=== PATIENT | female | born 2005 | race Caucasian/White ===

== ENCOUNTER 2025-05-25 13:26 | Emergency (ER) | payer OTHER, SELFPAY ==
--- OUTSIDE RECORDS SUMMARY | 2012-11-29 03:53 | XMS_ITS | Continuity of Care Document ---
Author Organization [facility] Address [address] [place] [address] Phone Care Team Providers Care Director Employee Communications Name Role Phone Trent De Guzman MD Unavailable Unavailable Medications Medication Instructions Dosage Effective Dates (start - stop) Status Comments Nasonex 50 mcg/Actuation Ferriday spray 1-2 spray by intranasal route every day in each nostril - Active PROAIR HFA 90 MCG INHALER inhale 2 puff by inhalation route 4 - 6 hours as needed - Active FLOVENT HFA 110 MCG INHALER inhale 2 puff (220MCG) by inhalation route 2 times every day - Active ALBUTEROL 0.083% INHAL SOLN 3 Q 4HR - Active Advance Directives Directive Yes / No Effective Date File Name No Information Encounters Encounter Description Practice Location Reason(s) For Visit Diagnoses Date Provider Providers Copied on Encounter [email or web address], [address], [place], [place], [id number] , tel: [phone] [facility] No Information 3 Gab Newman. [address], [id number], [place]. tel:[phone] [email or web address], [address], [place], [place], [id number] , tel: [phone] [email or web address] INTRINSIC ASTHMA, UNSPECIFIEDAllerg ic rhinitis due to pollen 1 Gab Newman. [address], [id number], . tel:[phone] Referring Provider: Donaldo Hughes, [address], [place], [address]. tel:[phone] [facility], [address], [place], [place], [id number] , tel: [phone] Conversion Department No Information 1 Conversion Doctor. [address], [facility], . [facility], [address], [place], [place], [id number] , tel: [phone] [facility] INT ASTHMA W (AC) EXACRHINITIS DUE TO POLLEN 0 Gab Newman. [address] [place] [address], [id number], . tel:[phone] [facility], [address], [place], [place], [id number] , tel: [phone] [facility] INTRINSIC ASTHMA NOS 0 4200 8 Gab Newman. [address], [id number], . tel:[phone] [facility], [address], [place], [place], [id number] , tel: [phone] [facility] ALLERGIC RHINITIS NECARTERIAL DISEASE NEC 8200 8 Gab Newman. [address] [place] [address], [id number], . tel:[phone] Family History Family Member Type Diagnosis Age At Onset No Information Payers Payer name Insurance type Covered constitution party ID Authoriza tion(s) [employer] BL [id number] Social History Type Description Quantity Date Captured Comments Sex Female Smoking Status No Information Chief Complaint And Reason For Visit No Information Reason For Referral Reason For Referral No Information History Of Present Illness Encounter Date Complaint History Of Prese nt Illness No Information Functional Status Date Functional Assessmen t No Information Instructions Date Instruction Additional Infor mation No Information Assessments Type Assessment Date No Information Patient Care Teams Name Effective Dates (start - stop) Status Members No Information
--- OUTSIDE RECORDS SUMMARY | 2022-03-31 10:29 | XMS_ITS | Continuity of Care Document ---
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 Name Role Phone Caleb Bob DO Unavailable Unavailable Allergies, Adverse Reactions, Alerts Substance Reaction Status Criticality DIPHENHYDRAMINE HCL Active No Infor mation Medications Medication Instructions Dosage Effective Dates (start - stop) Status Comments albuterol sulfate HFA 90 mcg/actuation aerosol inhaler inhale 2 puff by inhalation route every 4 - 6 hours as needed 180 MCG - Active Problems Condition Type Effective Dates (start - stop) Clini marixa Status Comments No Known Problems Procedures Procedure Date OFFICE/OUTPATIENT VISIT, EST URINALYSIS NONAUTO W/O SCOPE OFFICE/OUTPATIENT VISIT, [facility] Advance Directives Directive Yes / No Effective Date File Name No Information Encounters Encounter Description Practice Location Reason(s) For Visit Diagnoses Date Provider Providers Copied on Encounter [facility], [address] [place] [address], [address], tel:[phone] *[facility] No Information 2 Lisbeth Ellis. [address] [place], [address], [place]. tel:[phone] OFFICE/OUTPAT IENT VISIT, EST [facility], [address] [place], [address], tel:[phone] *[facility] Ur[facility] Care covid symptoms (chief complaint) Body mass index [BMI] pediatric, 5th percentile to less than 85th percentile for ageFlu-like symptoms 1 Lisbeth Van [address] [facility] [place], [address], [place]. tel:[phone] OFFICE/OUTPAT IENT VISIT, [facility], [address], [place], [address], [place] tel:[phone] *[facility] Care abdominal pain (chief complaint) Body mass index [BMI] 23.0-23.9, adultNoninfective gastroenteritis and colitis, unspecifiedAcute cystitis without hematuriaVaginal yeast infection 1 Nila Paul. [address] [place], [address], [place]. tel:[phone] Family History Family Member Type Diagnosis Age At Onset No Information Payers Payer name Insurance type Covered democrat ID Authoriza tion(s) No Information Social History Type Description Quantity Date Captured Comments Alcohol Use Details Unknown Caffeine Use Details Unknown Tobacco Use Status No Information Smoking Status No Information Sex Female Chief Complaint And Reason For Visit No Information Reason For Referral Reason For Referral No Information Plan Of Treatment Date Type Action Status Goal Dietary manageme nt education, guidance, and counseling completed Goal Dietary manageme nt education, guidance, and counseling completed Future Order: Lab Order SARS-2 ( COVID-19)RNA,[id number] ([id number]), Sent on: Sent History Of Present Illness Encounter Date Complaint History Of Prese nt Illness covid symptoms The symptoms beg an 2 days ago. The symptoms are reported as being moderate. The symptoms occur . She states the symptoms are acute. no exposure - symptoms - cough, congestion, headache, body aches, drainage. patient states that she use to have asthma. abdominal pain Onset: 2 Days ag o. Pain scale: 6/10. The reports no vomiting. The reports no diarrhea. Associated symptoms include abdominal pain, nausea and yeast infection. Pertinent negatives include cough, fever, lethargy or rash. Additional information: no sexual activity for 2 months, has menses since. Functional Status Date Functional Assessmen t No Information Instructions Date Instruction Additional Infor gianna quarantine, covid sw ab. Patient educated to rest, if fever presents to follow OTC medication regiment for fever, avoid contact with others as much as possible for 48 hours, wash hands frequently, drink plenty of fluids and report any changes in condition. Take medications a prescribed and report any changes. Related to Flu-like symptoms Giving encouragement to exercise Related to Body mass index [BMI] pediatric, 5th percentile to less than 85th percentile for age Dietary management e ducation, guidance, and counseling Related to Body mass index [BMI] pediatric, 5th percentile to less than 85th percentile for age Your condition can c hange/deteriorate quickly. I strongly encourage you to return to the office for follow up visit if your condition changes or there is no improvement within 48 hours. Go to the nearest ED if distressed Related to Vaginal yeast infection Increase water intak e, avoid caffeine, avoid soda, wash periarea with mild soap or baby shampoo. Void after sexual activity. Finish all medication even if starting to feel better Related to Acute cystitis without hematuria Dietary management e ducation, guidance, and counseling Related to Body mass index [BMI] 23.0-23.9, adult Assessments Type Assessment Date No Information Patient Care Teams Name Effective Dates (start - stop) Status Members No Information
--- NOTE | ~2025-05-25 | CT_ITS ---
EXAMINATION: CT abdomen pelvis wo con, 05/25/2025 14:55 CDT HISTORY: R flank pain, ABD pain, N/V/D, UTI COMPARISON: No comparisons available. TECHNIQUE: CT scan of the abdomen and pelvis was performed without IV contrast. One or more of the following dose reduction techniques were used: automated exposure control, adjustment of the mA and/or kV according to patient size, use of iterative reconstruction technique. Unless otherwise stated, incidental findings do not require dedicated follow up imaging FINDINGS: CT abdomen: LUNG BASES: The lung bases are clear. The visualized portions of the heart and pericardium are unremarkable. LIVER: Unremarkable, liver contours intact, no lesions. SPLEEN: Unremarkable, no splenomegaly. KIDNEYS: Right Kidney: Right kidney renal calculus mid pole 3 mm, no hydronephrosis or hydroureter. Left Kidney: Left kidney midpole 2 mm calculus, no hydronephrosis or hydroureter. ADRENAL GLANDS: Unremarkable. PANCREAS: Unremarkable. GALLBLADDER/BILIARY: Unremarkable. No biliary dilatation. STOMACH AND ESOPHAGUS: Visualized stomach and esophagus within normal limits. BOWEL/MESENTERY: Moderate fecal content. No colitis or diverticulitis. Appendix normal. Mesentery normal. No dilated small bowel loops. ADENOPATHY/RETROPERITONEUM: No lymphadenopathy. AORTA/VASCULATURE: Normal caliber aorta. FREE FLUID OR FREE AIR: No free fluid.. CT pelvis: SOLID ORGANS/REPRODUCTIVE: Unremarkable. BLADDER: Circumferential thickening of the bladder wall however the bladder is not well-distended. OSSEOUS STRUCTURES: No acute osseous abnormality.No suspicious lesions. OVERLYING SOFT TISSUES: Unremarkable. IMPRESSION: 1. Bilateral renal calculi. No hydronephrosis. Mild cystitis. Reviewed, dictated and finalized at location P.
[2025-05-25 13:33] VITALS: BP 154/91; PULSE 123; RESP 18; TEMP 36.7; O2SAT 100
--- OUTSIDE RECORDS SUMMARY | 2025-05-25 14:22 | XMS_ITS | Clinical Summary ---
Author Organization [facility] [address] [address] [place] [address] ANDREIA Watkins [address] Care Team Providers Care Relationship Specialist Name Role Phone Lorri Moniquee KENNEDI Primary Care Provider [phone] Allergies Active Allergy Reactions Criticality Noted Date Comments Diphenhydramine Hives,Urticaria Medium 03/07/2012 Medications drospirenone-eth inyl estradioL (PARTHA,OCELLA) 3-0.03 mg per tablet Take 1 tablet by mouth daily 04/16/2021 Active Active Problems Problem Noted Date Diagnosed Date Annual physical exam 09/21/2021 Assessment & Plan (09/21/2021 10:43 AM PUBLIC WORKS MANAGER): She reports being up-to-date with immunizations. She is not interested in flu shot. She will continue with a healthy diet regular exercise to maintain a healthy weight. She is cleared for foster family. Palpitations 09/21/2021 Assessment & Plan (09/21/2021 10:43 AM PUBLIC WORKS MANAGER): She will continue to avoid caffeine and she was strongly encouraged to stop vaping. She will be scheduled for a Holter monitor and will have blood work drawn today. If her symptoms worsen or persist she is to call. Closed Colles' fracture 12/09/2009 Immunizations Immunization Administration Dates Next Due DTaP 02/18/2004,2003,2003 HPV, Quadrivalent 01/27/2015,10/09/2013 Hep A, Pediatric 10/09/2013 Hep B / HiB 2003,2003 Hep B, Adolescent or Pediatric 2003 Hib (PRP-T) 02/18/2004 IPV 02/18/2004,2003,2003 Influenza, Quadrivalent, Spl it, Preservative Free, Intramuscular 05/16/2019 Influenza, Unspecified 03/21/2021(Deferred: Sharee ent Refused) MMR 02/18/2004 Meningococcal B, Recombinant (Trumenba) 04/23/2019 Meningococcal MCV4P (Menactra) 04/23/2019,2014 Pneumococcal Conjugate 7-Valent 2003,05/02 Tdap 01/27/2015 Varicella 02/18/2004 Family History Medical History Relation Name Comments Seizures Father Irregular heart beat Mother Relation Name Status Comments Father Alive Mother Alive Social History Tobacco Use Types Packs/Day Years Used Date Smoking Tobacco: Every Day Vaping Smokeless Tobacco: Never PHQ-2 Answer Date Recorded PHQ-2 Total Score (If total score is 3 or more points, staff should administer the PHQ-9) 0 09/21/2021 Personal Safety Answer Date Recorded Getting School Help Needed Not on file 10/15 Comments Unknown Sex and Gender Information Value Date Recorded Sex Assigned at Not on file Legal Sex Female 2:02 AM PUBLIC WORKS MANAGER Gender Identity Not on file Sexual Orientation Not on file Obstetrics History Last Filed Vital Signs Vital Sign Reading Time Taken Comments Blood Pressure 108/70 09/21/2021 10:21 AM PUBLIC WORKS MANAGER Pulse 91 09/21/2021 10:21 AM PUBLIC WORKS MANAGER Temperature 36.3 C (97.4 F) 09/21/2021 10:21 AM PUBLIC WORKS MANAGER Respiratory Rate - - Oxygen Saturation 99% 09/21/2021 10: 21 AM PUBLIC WORKS MANAGER Inhaled Oxygen Concentration - - Weight 65.2 kg (143 lb 12.8 oz) 022 10:21 AM PUBLIC WORKS MANAGER Height 167.6 cm (5' 6) 09/21/2021 10:2 1 AM PUBLIC WORKS MANAGER Body Mass Index 23.21 09/21/2021 10:21 AM PUBLIC WORKS MANAGER Plan of Treatment Not on file Insurance [facility] ZAKI BOSWELL Care Teams Relationship Specialist Relationship Specialty Start Date End Date Mabel Monique NP [address] [place] [address] [place] [id number] PCP - General Creative Services Writer 06/09/22
--- OUTSIDE RECORDS SUMMARY | 2025-05-25 14:22 | XMS_ITS | Clinical Summary ---
Author Organization [facility] stus Address [address] [facility] [place] [address] Phone Care Team Providers Care Product Info Specialist Name Role Phone Unavailable Primary Care Provider Unavailabl e Allergies Active Allergy Reactions Criticality Noted Date Comments Diphenhydramine Hcl Unknown 02/26/2014 Medications albuterol sulfate HFA 90 mcg/actuation aerosol inhalerIndicati ons:Wheezing-as sociated respiratory infection (WARI) Take 2 Puffs by inhalation every 6 hours as needed for Shortness of Breath. 8.5 Gram 4 Active metroNIDAZOLE (FLAGYL) 500 mg tablet Take 1 Tablet (500 mg) by mouth 2 times daily for 7 days. 14 Tablet 5 05/30/20 25 Active drospirenone-et hinyl estradioL (Anna Marie, 28,) 3-0.03 mg tablet Take 1 Tablet by mouth daily. 84 Tablet 5 Active fluconazole (DIFLUCAN) 150 mg tablet Take 1 tablet by mouth today. May take another dose every 3 days(72 hours) if symptoms remain, x 3 doses total. 3 Tablet 5 Active drospirenone-et hinyl estradioL (Anna Marie, 28,) 3-0.03 mg tablet Take 1 Tablet by mouth daily. 84 Tablet 2 5 05/23/20 25 Discontin ued(Reord er) Active Problems No known active problems Resolved Problems Problem Noted Date Diagnosed Date Resolved Date Traumatic closed nondisplace d fracture of metatarsal bone of left foot 02/27/2019 04/21/2022 Closed nondisplaced fracture of third metatarsal bone of right foot 07/13/2015 04/21/2022 Contusion of right foot 02/26/2014 09/0 08/2021 Encounters Date Type Department Care Team Description 05/23/2025 Results Follow-Up [facility] COMMUNICATIONS SUPERINTENDENT [place] [address] [place] [address] Silvana Bellamy RN VAGINOSIS/VAGINITIS PANEL PLUS, URINE CULTURE 05/23/2025 Telephone [facility] COMMUNICATIONS SUPERINTENDENT [place] [address] [place] [address] Rosetta Grey MD Results 05/22/2025 1:15 PM CDT Office Visit [facility] [place] [address] [address] [place] [address] Rosetta Grey MD Vaginal itching (Primary Dx); Dysuria 05/06/2025 External Device Data STL ABSTRACTION Provider, Abstract 04/22/2025 External Device Data STL ABSTRACTION Provider, Abstract 04/16/2025 Refill [facility] COMMUNICATIONS SUPERINTENDENT [address] [place] [address] Claudia Castillo NP 04/08/2025 External Device Data STL ABSTRACTION Provider, Abstract 03/05/2025 External Device Data STL ABSTRACTION Provider, Abstract 03/05/2025 External Device Data STL ABSTRACTION Provider, Abstract 03/03/2025 11:20 AM CDT Office Visit [facility] [place] [address] [facility] [place] [address] Jannet Recio DNP Acute cystitis with hematuria (Primary Dx); Right flank pain; UTI symptoms from Last 3 Months Immunizations Immunization Administration Dates Next Due (ACTHIB/HIBERIX)(2 MOS-5 YRS /6 WKS-4 YRS) HAEMOPHILUS INFLUENZAE TYPE B VACCINE (HIB), PRP-T CONJUGATE, 4 DOSE, 0.5 ML IM 02/18/2004 (ADACEL/BOOSTRIX)(10 YR UP) TDAP VACCINE, 0.5ML, IM 01/27/2015 (BEXSERO)(10-25 YR) MENINGOC OCCAL RECOMBIANT PROTEIN AND OUTER MEMBRANE VESICLE VACCINE, SEROGROUP B MENB-4C, 2 DOSE IM 04/23/2019 (GARDASIL)(9-45 YRS) HUMAN P APILLOMAVIRUS VACCINE, TYPES 6, 11, 16, 18, QUADRIVALENT (4VHPV), 3 DOSE, IM 01/27/2015,10/09/2013 (HAVRIX/VAQTA)(12 MO-18 YRS) HEPATITIS A VACCINE 0.5 ML PED/ADOL 2 DOSE, IM 10/09/2013 (INFANRIX)(6 WKS-6 YRS) DIPT HERIA, TETANUS TOXOIDS, AND ACCELLULAR PERTUSSIS VACCINE (DTAP), 0.5 ML IM 02/18/2004,2003,2003 (IPOL)(6 WKS AND UP) POLIOVI OVI VACCINE, INACTIVATED (IPV), 3 DOSE, SUBCUT OR IM 02/18/2004,2003,2003 (M-M-R II/PRIORIX)(12 MO UP) MEASLES, MUMPS AND RUBELLA VIRUS VACCINE, 0.5 ML IM/SUBCUT 02/18/2004 (RECOMBIVAX HB/ENGERIX-B)(0- 19 YRS) HEPATITIS B VACCINE 5 MCG/0.5 ML OR 10 MCG/0.5 ML PED OR ADOL 3 DOSE (PF), IM 2003 (VARIVAX)(12 MOS UP)VARICELL A VIRUS VACCINE (PF) 0.5 ML, SUB CUT 02/18/2004 Hepatitis B and Haemophilus Influenzae Type B Vaccine (Hib-HepB)IM 2003,2003 INFLUENZA VACCINE QUADRIVALE NT 6 MOS UP PF IM 05/16/2019 Meningococcal Polysaccharide Vaccine SQ 04/23/20 19,01/27/2015 Pneumococcal 7-valent conjugate vaccine IM 09/16,2003 Family History Medical History Relation Name Comments Healthy Father Healthy Mother Other Mother Breast Cancer Neg Hx Colon Cancer Neg Hx Ovarian Cancer Neg Hx Uterine Cancer Neg Hx Relation Name Status Comments Father Alive Mother Alive Social History Tobacco Use Types Packs/Day Years Used Date Smoking Tobacco: Never Passive Smoke Exposure: Never Smokeless Tobacco: Never Tobacco Cessation:Counseling Given: Not Answered Alcohol Use Standard Drinks/Week Comments Yes 0 (1 standard drink = 0.6 oz pur e alcohol) rare Feeling Safe Answer Date Recorded Are you in a relationship wi th someone who hurts you emotionally and/or physically? No 02/19/2024 Comments No Sex and Gender Information Value Date Recorded Sex Assigned at Not on file Legal Sex Female 5:07 PM CONTINUING EDUCATION SPECIALIST Gender Identity Not on file Sexual Orientation Not on file Last Filed Vital Signs Vital Sign Reading Time Taken Comments Blood Pressure 110/70 05/22/2025 1:21 PM CDT Pulse 109 03/03/2025 11:26 AM CDT Temperature 36.7 C (98.1 F) 03/03/2025 11:26 AM CDT Respiratory Rate 16 03/03/2025 11:26 AM CDT Oxygen Saturation 100% 03/03/2025 11:26 AM CDT Inhaled Oxygen Concentration - - Weight 57.2 kg (126 lb) 05/22/2025 1:21 PM CDT Height 167.6 cm (5' 6) 05/22/2025 1:21 PM CDT Body Mass Index 20.34 05/22/2025 1:21 PM CDT Plan of Treatment Upcoming Encounters Date Type Department Care Team (Late st Contact Info) Description 07/08/2025 11:00 AM CONTINUING EDUCATION SPECIALIST Office Visit [facility] COMMUNICATIONS SUPERINTENDENT - [address] [place] [address] Rosetta Grey MD [address] [address] [address] [place] [phone] 07/10/2025 9:30 AM CONTINUING EDUCATION SPECIALIST Office Visit [facility] COMMUNICATIONS SUPERINTENDENT - [place] [address] [address] [place] [address] Rosetta Grey MD [address] [address] [address] [place] [address] Health Maintenance Due Date Last Done Comments HPV/Cotest (21-29) 01/24/2024 DTAP/TDAP/TD VACCINES (5 - T d or Tdap) 01/27/2025 01/27/2015, 02/18/2004, 2003, Additional history exists INFLUENZA VACCINE (#1) 2025 05/16/2019 CHLAMYDIA SCREENING (ANNUAL) 11-24 YEARS 05/22/2026 05/22/2025, 01/27/2025, 12/04/2024, Additional history exists CERVICAL CANCER SCREENING 05/29/2027 PAP SMEAR 05/29/2027 05/29/2024 HEPATITIS B VACCINES Completed 2003, 2003, 2003 HPV VACCINES Completed 01/27/2015, 10/09/2013 Procedures Procedure Name Priority Date/Time Associated Diagnosis Comments URINE CULTURE Routine 05/22/2025 2:09 PM CDT Dysuria VAGINOSIS/VAGINITIS PANEL PLUS Routine 05/22/2025 1:54 PM CDT Vaginal itching POC URINALYSIS DIPSTICK AUTOMATED Routine 03/03/2025 11:36 AM CDT UTI symptoms URINE CULTURE Routine 03/03/2025 11:25 AM CDT UTI symptoms CERV/VAG CYTO AGE BASED SCREEN PAP W CT/NG, TRICH Routine 05/29/2024 9:31 AM CDT Screening for cervical cancer Screening examination for STD (sexually transmitted disease) from Last 3 Months or Most Recently Relevant to Health Maintenance Results * (ABNORMAL) URINE CULTURE (05/22/2025 2:09 PM CDT) Only the most recent of2 resultswithin the time period is included. URINE CULTURE SEE NOTE(A) [place] [facility] Comment: CULTURE, URINE, ROUTINE Micro Number: [id number] Test Status: Final Specimen Source: Urine, clean catch Specimen Quality: Adequate Result: Greater than 100,000 CFU/mL of Escherichia coli E.coli INT ANDRES AMOX/CLAVULANATE S <=2 AMP/SULBACTAM S <=2 CEFAZOLIN NR 2 2 CEFEPIME S <=0.12 CEFTAZIDIME S <=0.5 CEFTRIAXONE S <=0.25 CIPROFLOXACIN S <=0.06 GENTAMICIN S <=1 IMIPENEM S <=0.25 LEVOFLOXACIN S <=0.12 MEROPENEM S <=0.25 NITROFURANTOIN S <=16 PIP/TAZOBACTAM S <=4 TRIMETHOPRIM/SULFA S <=20 S = Susceptible I = Intermediate R = Resistant NS = Not susceptible SDD = Susceptible Dose Dependent * = Not Tested NR = Not Reported NN = See Therapy Comments THERAPY COMMENTS Note 1: For infections other than uncomplicated UTI caused by E. coli, K. pneumoniae or P. mirabilis: Cefazolin is resistant if ANDRES > or = 8 mcg/mL. (Distinguishing susceptible versus intermediate for isolates with ANDRES < or = 4 mcg/mL requires additional testing.) Note 2: For uncomplicated UTI caused by E. coli, K. pneumoniae or P. mirabilis: Cefazolin is susceptible if ANDRES <32 mcg/mL and predicts susceptible to the oral agents cefaclor, cefdinir, cefpodoxime, cefprozil, cefuroxime, cephalexin and loracarbef. Test Performed at: [place] [address] [address] [place] [address] [facility] Urine URINE SPECIMEN OBTAINED BY CLEAN CATCH PROCEDURE / Unknown 05/22/2025 2:09 PM CDT 05/22/2025 2:09 PM CDT Rosetta Grey MD MICROBIOLOGY - GENERAL ORD ERABLES Final Result [facility] [phone] [place] [address] [address] [place] [address] * (ABNORMAL) VAGINOSIS/VAGINITIS PANEL PLUS (05/22/2025 1:54 PM CDT) BACTERIAL VAGINOSIS POSITIVE(A) NEGATIVE [facility] [place] VERÓNICA SPECIES DETECTED(A) NOT DETECTED [facility] [place] VERÓNICA GLABRATA NOT DETECTED NOT DETECTED [facility] [place] Comment: Verónica species C. albicans, C. tropicalis, C. parapsilosis, and/or C. dubliniensis can be detected, but not differentiated, in the Verónica spp. result. TRICHOMONAS VAGINALIS (TV), TMA NOT DETECTED NOT DETECTED [facility] [place] CHLAMYDIA TRACHOMATIS RNA, TMA, UROGENITAL NOT DETECTED NOT DETECTED [facility] [place] NEISSERIA GONORRHOEAE RNA, TMA, UROGENITAL NOT DETECTED NOT DETECTED [facility] [place] Comment: For additional information, please refer to https://education.Med ePad/faq/QRS078 (This link is being provided for information/ educational purposes only.) Test Performed at: [place] [facility] [address] [facility] [place] [address] Alina June MD Genital SPECIMEN FROM VAGINA / Unknown 05/22/2025 1:54 PM CDT 05/23/2025 3:48 AM CDT Rosetta Grey MD MICROBIOLOGY - GENERAL ORD ERABLES Final Result [facility] [phone] [facility] [facility] [address] [facility] [place] [address] * (ABNORMAL) POC URINALYSIS DIPSTICK AUTOMATED (03/03/2025 11:36 AM CDT) COLOR UA POC Yellow Pale to Dark Yellow [facility] CLARITY UA POC Cloudy(A) Clear, Other [facility] GLUCOSE UA POC Negative Negative, Normal [facility] BILIRUBIN UA POC 1+(A) Negative [facility] KETONES UA POC Negative Negative [facility] SPECIFIC GRAVITY UA POC 1.025 1.000 - 1.030 [facility] BLOOD UA POC 1+(A) Negative [facility] PH UA POC 6.0 5.0 - 8.0 [facility] PROTEIN UA POC Trace(A) Negative [facility] UROBILINOGEN UA POC 0.2 <2.0 mg/dL [facility] NITRITE UA POC Positive(A) Negative [facility] LEUKOCYTE ESTERASE UA POC 1+(A) Negative [facility] KIT LOT NUMBER POC [id number] [facility] KIT EXP DATE POC 07 03 2026 [facility] Urine 03/03/2025 11:3 6 AM CDT Jannet Recio DNP POINT OF CARE TESTING Final Result [facility] CLIA# [id number] [place] [address] * CERV/VAG CYTO AGE BASED SCREEN PAP W CT/NG, TRICH (05/29/2024 9:31 AM CDT) COMMENT (PAP): [facility] [place] Comment: This order for age-based cervical cancer and STI screening follows ACOG guidelines(PB 168, 140, VTN533). See individual assays for performing site location. CLINICAL INFORMATION [facility] [place] Comment:SCREENING LAST MENSTRUAL PERIOD [facility] [place] Comment:NONE GIVEN PREV PAP: [facility] [place] Comment:NONE GIVEN PREV BX: [facility] [place] Comment:NONE GIVEN SOURCE [facility] [place] Comment:Endocervix ADEQUACY: [facility] [place] Comment: Satisfactory for evaluation. Endocervical/transformation zone component present. Age and/or menstrual status not provided PAP INTERP [facility] [place] Comment: Cytology Results: Negative for intraepithelial lesion or malignancy. COMMENT (PAP TEST) [facility] [place] Comment: This Pap test has been evaluated with computer assisted technology. [employer] COUNSEL: [facility] [place] Comment: PCM, CT(ASCP) CT Screening Location: [place] [address] [place] [address] EXPLANATORY NOTE [facility] Comment: EXPLANATORY NOTE: The Pap is a screening test for cervical cancer. It is not a diagnostic test and is subject to false negative and false positive results. It is most reliable when a satisfactory sample, regularly obtained, is submitted with relevant clinical findings and history, and when the Pap result is evaluated along with historic and current clinical information. CHLAMYDIA TRACHOMATIS RNA, TMA, UROGENITAL NOT DETECTED NOT DETECTED [facility] [place] NEISSERIA GONORRHOEAE RNA, TMA, UROGENITAL NOT DETECTED NOT DETECTED [facility] [place] COMMENT INFECTIOUS DISEASE [facility] [place] Comment: The analytical performance characteristics of this assay, when used to test SurePath(TM) specimens have been determined by [facility]. The modifications have not been cleared or approved by the FDA. This assay has been validated pursuant to the CLIA regulations and is used for clinical purposes. For additional information, please refer to https://Yakaz.Med ePad/faq/OWV741 (This link is being provided for information/ educational purposes only.) TRICHOMONAS VAGINALIS,QUALITAT EVELIN,PAP VIAL NOT DETECTED NOT DETECTED [facility] [place] Comment: The analytical performance characteristics of this assay have been determined by [facility]. The modifications have not been cleared or approved by the FDA. This assay has been validated pursuant to the CLIA regulations and is used for clinical purposes. For additional information, please refer to [email or web address].Med ePad/ faq/Trichomonastma (This link is being provided for information/ educational purposes only.) Test Performed at: [facility] [address] [id number] Alina SCHNEIDER Genital SWAB OF ENDOCERVIX / Unknown 05/29/2024 9:31 AM CDT 05/30/2024 3:27 AM CDT Rosina Raya NP PATHOLOGY/CYTOLOGY ORDERAB LES Final Result [facility] [phone] [facility] [address] [phone] from Last 3 Months or Most Recently Relevant to Health Maintenance Insurance A[employer] OPEN CHOICE PPO AET[employer] OPEN CHOICE PPO
--- OUTSIDE RECORDS SUMMARY | 2025-05-25 14:22 | XMS_ITS | Encounter Summary ---
Author Organization [facility] Address [address] [place] [address] Care Team Providers Care Web Worker Name Role Phone Unavailable Primary Care Provider Unavailabl e Encounter Details Date Type Department Care Team (Late st Contact Info) Description 05/23/2025 Results Follow-Up [facility] [place] - [place] [address] [address] [place] [address] Silvana Bellamy RN VAGINOSIS/VAGINITIS PANEL PLUS, URINE CULTURE Social History Tobacco Use Types Packs/Day Years Used Date Smoking Tobacco: Never Passive Smoke Exposure: Never Smokeless Tobacco: Never Alcohol Use Standard Drinks/Week Comments Yes 0 (1 standard drink = 0.6 oz pur e alcohol) rare Feeling Safe Answer Date Recorded Are you in a relationship wi th someone who hurts you emotionally and/or physically? No 02/19/2024 Comments No Sex and Gender Information Value Date Recorded Sex Assigned at Not on file Legal Sex Female 5:07 PM TRAILER CHIEF Gender Identity Not on file Sexual Orientation Not on file documented as of this encounter Plan of Treatment Upcoming Encounters Date Type Department Care Team (Late st Contact Info) Description 07/08/2025 11:00 AM TRAILER CHIEF Office Visit [facility] [place] - [address] [place] [phone] Rosetta Grey MD [address] [place] [address] [address] [place] [address] 07/10/2025 9:30 AM TRAILER CHIEF Office Visit [facility] [place] - [address] [place] [phone] Rosetta Grey MD [address] [address] [address] [place] [phone] documented as of this encounter Visit Diagnoses Not on filedocumented in this encounter Additional Health Concerns Assessment Noted Time PHQ-9 Depression Total Score: 2 04/21/20 22 1:00 PM CDT documented as of this encounter
[2025-05-25 14:30] LABS: BEDSIDEPREGUCG Negative (Negative)
[2025-05-25 14:47] LABS: Add Urine Microscopic? YES; Appearance Urine Turbid (Clear); Glucose Urine UA Negative (Negative); Leukocyte Esterase Ur 1+ LEU/UL (Negative); Need Manual Microscopic Reviewed; Nitrate Urine Positive (Negative); Specific Grav Ur 1.030 (1.001-1.035)
--- NOTE | 2025-05-25 15:08 | ED_ITS ---
HPI - Female Genitourinary General Chief complaint: Urogenital-Female Stated complaint: uti, fever nauseated Time Seen by Provider: 05/25/25 14:11 Source: patient Mode of arrival: ambulatory Limitations: no limitations History of Present Illness HPI Narrative: Patient is a 20-year-old who presents to the ED with c/o abdominal pain, N/V/D. Patient reports she was diagnosed with a urinary tract infection, BV, yeast infection on 05/23 by her OBGYN. Given diflucan and currently on 2 abx. Unsure of the names of the abx. Reports last night she began feeling ill, reporting worsening difficulty urinating, fever up to 102? F, nausea, vomiting, diarrhea, diffuse lower abdominal pain, right flank pain. Is concerned she may have a viral infection on top of the UTI. 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 Did have a fever today but took Tylenol prior to arrival. Related Data Allergies Allergy/AdvReac Type Severity Reaction Status Date / Time diphenhydramine (From Allergy Hives Verified 05/25/25 13:27 Benadryl) Review of Systems 2 Review of Systems: All systems reviewed & are unremarkable except as noted in HPI. All systems reviewed & are unremarkable except as noted in HPI and below Exam 2 Narrative: GENERAL: Well appearing, thin, non-toxic, in no acute distress. HEAD: Normocephalic, atraumatic. RESPIRATORY: Airway patent, respirations nonlabored. Clear to auscultation bilaterally, no rales, rhonchi, wheezing. CARDIOVASCULAR: Tachycardic with regular rhythm without murmurs, rubs, or gallops. ABDOMINAL: Soft, mild diffuse lower abdominal tenderness, nondistended. Normoactive BS. Mild right-sided CVA tenderness MUSCULOSKELETAL: Moves all extremities. No gross deformities. SKIN: Warm, dry, normal color. NEURO: A&O X3. Speech clear. Cranial nerves II-XII grossly intact. Steady gait. No ataxic movements. PSYCHIATRIC: Appropriate mood and affect. Normal interaction. Course Vital Signs Vital signs: Vital Signs Temperature 98.0 F 05/25/25 13:33 Pulse Rate 123 H 05/25/25 13:33 Respiratory Rate 18 05/25/25 13:33 Blood Pressure 154/91 H 05/25/25 13:33 Pulse Oximetry 100 05/25/25 13:33 Temperature 98.3 F 05/25/25 18:37 Pulse Rate 112 H 05/25/25 18:37 Respiratory Rate 18 05/25/25 18:37 Blood Pressure 113/78 05/25/25 18:37 Pulse Oximetry 99 05/25/25 18:37 MDM - Female Genitourinary MDM Narrative Medical decision making narrative: Patient presented to ED with abdominal pain, right flank pain, recent UTI, nausea, vomiting, diarrhea, fevers. Patient tachycardic upon arrival. Afebrile here. Fluids initiated. Laboratory studies without leukocytosis or anemia. CMP fairly unremarkable. Kidney function is stable. UA does still appear infected, positive nitrate, 1+ leuk esterase, 21-50 WBC. 4+ urine bacteria. Sent for culture. Viral swabs negative. CT abd/pelvis obtained with cystitis changes, bilateral renal calculi, no ureterolithiasis. Patient feeling improved after fluids. Heart rate did normalize after fluid administration. Discussed lab and imaging findings, possibility of viral gastroenteritis in addition to UTI. Will switch antibiotics for UTI to Bactrim. Patient advised to continue metronidazole and fluconazole as needed for previously diagnosed BV/yeast infection. Advised to follow-up with PCP, will discharge with Zofran. Advised to stay well hydrated. Given return precautions. Discharged in stable condition. Medical Records Attestation: I reviewed the patient's medical records. Lab Data Attestation: I reviewed the patient's lab results. 05/25/25 15:44 05/25/25 15:44 Labs: Lab Results 05/25/25 05/25/25 05/25/25 Range/Units 14:23 14:29 15:44 WBC 6.8 (4.5-10.0) K/mm3 RBC 4.65 (4.2-5.4) M/mm3 Hgb 13.3 (12.0-15.0) g/dL Hct 40.8 (37.0-47.0) % MCV 87.7 (80-100) fl MCH 28.6 (26-34) pg MCHC 32.6 (32-36) g/dl RDW 13.2 (11.5-14.5) % Plt Count 227 (150-375) k/mm3 MPV 8.9 (7.4-10.4) fl Immature Gran % (Auto) 0.6 H (0-0.5) % Neut % (Auto) 86.6 H (45.5-73.1) % Lymph % (Auto) 7.5 L (18.3-44.2) % [place] % (Auto) 5.0 (2.6-8.5) % Eos % (Auto) 0.0 (0-4.4) % Baso % (Auto) 0.3 (0.2-1.2) % Lymph # (Auto) 0.51 L (0.9-3.2) K/mm3 [place] # (Auto) 0.3 (0.1-0.6) K/mm3 Eos # (Auto) 0.0 (0-0.3) K/mm3 Baso # (Auto) 0.0 (0.0-0.1) K/mm3 Abs Immat Gran (auto) 0.04 H (0.00-0.031) K/mm3 Absolute Neuts (auto) 5.9 (1.3-6.7) K/mm3 Absolute Nucleated RBC 0.000 (0.0-0.012) K/mm3 Nucleated RBC % 0.0 (0.0-0.2) % Sodium 134 L (137-145) mmol/L Potassium 3.5 (3.4-5.0) mmol/L Chloride 104 (98-107) mmol/L Carbon Dioxide 21 L (22-30) mmol/L Anion Gap 9 (4-12) mmol/L BUN 12 (7-17) mg/dL Creatinine 0.74 (0.7-1.0) mg/dL Estim Creat Clear Calc 91 ml/min Estimated GFR > 60 (59 - ) Glucose 89 (65-110) mg/dL Calcium 8.4 (8.4-10.2) mg/dL Total Bilirubin 0.7 (0.2-1.3) mg/dL AST 33 (14-36) U/L ALT 23 (6-35) U/L Alkaline Phosphatase 51 (38-126) U/L Total Protein 7.3 (6.3-8.2) g/dL Albumin 4.1 (3.5-5.1) g/dL Urine Color Yellow (Yellow) Urine Appearance Turbid H (Clear) Urine pH 5.5 (5.0-9.0) Ur Specific [place] 1.030 (1.001-1.035) Urine Protein 1+ H (Negative) mg/dL Urine Glucose (UA) Negative (Negative) mg/dL Urine Ketones 3+ H (Negative) mg/dL Ur Blood (Man) Negative (Negative) Urine Nitrate Positive H (Negative) Urine Bilirubin Negative (Negative) Urine Urobilinogen 1.0 (<2.0) mg/dL Add Ur Microanalysis Reviewed Leukocyte Esterase Rfl 1+ H (Negative) MARIELLA/UL Urine RBC 0-2 (0-2) /hpf Urine WBC 21-50 H (0-3) /hpf Ur Squamous Epith Cells Many H (Few) /hpf Urine Bacteria 4+ H /hpf Urine Casts 3-5 POC Urine HCG, Qual Negative (Negative) Influenza A (RT-PCR) Negative (Negative) Influenza B (RT-PCR) Negative (Negative) RSV (RT-PCR) Negative (Negative) SARS-CoV-2 RNA (RT-PCR) Negative (Negative) Imaging Data Attestation: I personally reviewed and interpreted this imaging study as follows: Radiologist's impression: ITS Impressions Abdomen/Pelvis CT 05/25/25 15:24 IMPRESSION: 1. Bilateral renal calculi. No hydronephrosis. Mild cystitis. Discharge Plan Discharge Clinical Impression: Urinary tract infection Qualifiers: Urinary tract infection type: acute cystitis Hematuria presence: without hematuria Qualified Code(s): N30.00 - Acute cystitis without hematuria Nausea and vomiting Qualifiers: Vomiting type: unspecified Qualified Code(s): R11.2 - Nausea with vomiting, unspecified Patient Disposition: Home Condition: Stable Instructions: Antibiotic Form, Dehydration (ED), Urinary Tract Infection in Women (ED), Gastroenteritis (ED) Additional Instructions: Take Bactrim as prescribed for urinary tract infection. You may continue metronidazole/flagyl for your previously diagnosed BV. You may continue Fluconazole as needed for yeast like symptoms. Follow-up with your primary care doctor for further evaluation. Utilize zofran as needed for further nausea. Continue Tylenol/ibuprofen as needed for fevers or pain. Increase fluid intake. Recommend electrolyte rich fluids, gatorade, pedialyte, body armour. Recommend clear liquids or bland diet until symptoms improve, such as bananas, rice, applesauce, toast, or crackers. Return to the ED if you experience worsening or severe symptoms, unable to keep down food or drink, severe pain, fevers, rectal bleeding, vomiting blood, blood in urine, unable to urinate, or any other symptoms of concern. Patient Language: Marshallese Prescriptions: New ondansetron 4 mg tablet,disintegrating 4 mg PO Q8H PRN (Reason: nausea and vomiting) Qty: 15 0RF sulfamethoxazole-trimethoprim [Bactrim DS] 800-160 mg tablet 1 tablet PO Q12H 7 Days Qty: 14 0RF Follow-up/Referrals: PHYSICIAN NOT ON STAFF,NONSTAFF [Primary Care Provider] Stand Alone Forms: Work/School Release IP Time of Disposition: 18:10
[2025-05-25 15:41] VITALS: BP 121/72; PULSE 96; RESP 16; O2SAT 100
[2025-05-25] MEDS: SODIUM CHLORIDE 0.9% IV 1,000 ML 999 ML IV CONT (15:42)
[2025-05-25 15:53] LABS: Hematocrit 40.8 % (37.0-47.0); Hemoglobin 13.3 g/dL (12.0-15.0); Immature Granulocyte Percent A 0.6 % (0-0.5); Lymphocytes Absolute Auto 0.51 K/mm3 (0.9-3.2); Mean Corpuscular HGB Conc 32.6 g/dl (32-36); Mean Corpuscular Hemoglobin 28.6 pg (26-34); Mean Corpuscular Volume 87.7 fl (80-100); Nucleated Red Blood Cells Absolute Auto 0.000 K/mm3 (0.0-0.012); Nucleated Red Blood Cells Perc 0.0 % (0.0-0.2); Platelet Count Result 227 k/mm3 (150-375); Red Blood Count 4.65 M/mm3 (4.2-5.4); White Blood Count 6.8 K/mm3 (4.5-10.0)
[2025-05-25 16:10] LABS: Alanine Aminotransferase 23 U/L (6-35); Albumin Level 4.1 g/dL (3.5-5.1); Alkaline Phosphatase 51 U/L (38-126); Anion Gap 9 mmol/L (4-12); Aspartate Amino Transferase 33 U/L (14-36); Bilirubin,Total 0.7 mg/dL (0.2-1.3); Blood Urea Nitrogen 12 mg/dL (7-17); Calcium 8.4 mg/dL (8.4-10.2); Carbon Dioxide 21 mmol/L (22-30); Chloride 104 mmol/L (98-107); Estimated CRCL calculation 91 ml/min; Estimated Glomerular Filt Rate > 60; Glucose 89 mg/dL (65-110); Potassium 3.5 mmol/L (3.4-5.0); Sodium 134 mmol/L (137-145); Total Protein 7.3 g/dL (6.3-8.2)
[2025-05-25 16:45] VITALS: BP 124/74; PULSE 98; RESP 18; O2SAT 100
[2025-05-25 17:50] LABS: Influenza A QL RT-PCR Negative (Negative); Influenza B QL RT-PCR Negative (Negative); RSV RNA, RT-PCR Negative (Negative); SARS-CoV-2 RNA PCR Negative (Negative)
[2025-05-25 18:37] VITALS: BP 113/78; PULSE 112; RESP 18; TEMP 36.8; O2SAT 99
== END 2025-05-25 18:43 | disposition home or self-care (01) ==
PROVIDERS: Emergency Medicine; Emergency Provider Physician Assistant
DX: N30.00 Acute cystitis without hematuria (principal); R11.2 Nausea with vomiting, unspecified
CPT/HCPCS: 36415; 74176; 80053; 81001; 81025; 85025; 87077; 87086; 87186; 87637; 96360; 99284; J7030